=== PATIENT | female | born 1975 | race Caucasian/White ===

== ENCOUNTER 2023-06-25 06:44 | Inpatient (IN) | payer BC ==
[2023-06-25 07:17] LABS: #Monocytes 1.7 thou/uL (0.11-0.59); #Neutrophils 14.7 thou/uL (1.40-6.50); %Basophils 0.2 % (0.0-1.0); %Eosinophils 0.1 % (0.0-10.0); %Lymphocytes 16.5 % (21.0-51.0); %Monocytes 8.6 % (0.0-10.0); %Neutrophils 74.2 % (42.0-75.0); Hematocrit 44.5 % (36.0-47.0); Hemoglobin 16.2 g/dL (12.0-16.0); Mean Corpuscular HGB CONC 36.4 g/dL (32.0-36.0); Mean Corpuscular Hemoglobin 29.9 pg (27.0-31.0); Mean Corpuscular Volume 82.1 fl (78.0-98.0); Mean Platelet Volume 9.4 fL (7.4-10.4); Platelet Count 635 10x3/uL (130-400); RBC Distribution Width 13.1 % (11.5-14.5); Red Blood Cell (RBC) Count 5.42 mill/uL (4.20-5.40); White Blood Cell (WBC) Count 19.8 10x3/uL (4.8-10.8)
[2023-06-25 07:33] LABS: ALT (SGPT) 22 U/L (8-55); AST (SGOT) 25 U/L (5-34); Alkaline Phosphatase 95 U/L (40-110); Anion Gap 23 mmol/L (10-20); BUN (Urea Nitrogen) 11 mg/dL (7.0-18.7); Bilirubin, Total 1.6 mg/dL (0.2-1.2); Calc. Creatinine Clearance 0 mL/min (70-130); Calcium 10.2 mg/dL (7.8-10.44); Carbon Dioxide 18 mmol/L (22-29); Chloride 100 mmol/L (98-107); Estimated GFR 67; Globulin 3.9 g/dL (2.4-3.5); Glucose 161 mg/dL (70-105); Potassium 3.7 mmol/L (3.5-5.1); Protein, Total 8.9 g/dL (6.0-8.3); Sodium 137 mmol/L (136-145)
[2023-06-25] MEDS ORDERED: Ondansetron PF 4 MG/2 ML Vial ONE (07:37)
[2023-06-25 07:40] LABS: Critical Call Chem Troponin I NUR.LR15@0740; Troponin I 1.354 ng/mL (< 0.028)
[2023-06-25] MEDS ORDERED: Aspirin Chewable 81 MG TAB ONE (07:53)
[2023-06-25] MEDS ORDERED: Enoxaparin 80 MG (0.8 mL) SYRINGE ONE (08:56)
[2023-06-25 08:59] LABS: Influenza A by NAA Not Detected (NotDetected); Influenza B by NAA Not Detected (NotDetected); SARS-CoV-2 NAA Rapid Test Not Detected (NotDetected)
[2023-06-25 10:52] LABS: Critical Call Chem Troponin I NUR.JF4 @1052; Troponin I 1.219 ng/mL (< 0.028)
[2023-06-25] MEDS ORDERED: Nitroglycerin 0.4 MG TAB (25 Tab Bottle) SL PRN (11:32)
[2023-06-25] MEDS ORDERED: Acetaminophen 325 MG TAB PO PRN (11:32)
[2023-06-25] MEDS ORDERED: Acetaminophen 650 MG Suppository PR PRN (11:32)
[2023-06-25] MEDS ORDERED: Ondansetron PF 4 MG/2 ML Vial IVP PRN (11:32)
[2023-06-25] MEDS ORDERED: Ondansetron ODT 4 MG TAB PO PRN (11:32)
[2023-06-25] MEDS ORDERED: Pantoprazole 40 MG VIAL ONE (12:43)
[2023-06-25] MEDS ORDERED: Famotidine/PF 20 mg/2ml Vial ONE (12:44)
[2023-06-25] MEDS: Pantoprazole 40 MG VIAL IVP SCH (12:53)
[2023-06-25] MEDS: Sodium Chloride 0.9% 1,000 ML IV SCH (12:53)
[2023-06-25] MEDS: Famotidine 20 MG TAB PO SCH (12:53)
[2023-06-25 13:00] LABS: #Monocytes 1.2 thou/uL (0.11-0.59); #Neutrophils 11.7 thou/uL (1.40-6.50); %Basophils 0.2 % (0.0-1.0); %Eosinophils 0.1 % (0.0-10.0); %Lymphocytes 20.9 % (21.0-51.0); %Monocytes 7.3 % (0.0-10.0); %Neutrophils 71.2 % (42.0-75.0); Hematocrit 39.7 % (36.0-47.0); Hemoglobin 14.4 g/dL (12.0-16.0); Mean Corpuscular HGB CONC 36.3 g/dL (32.0-36.0); Mean Corpuscular Hemoglobin 30.2 pg (27.0-31.0); Mean Corpuscular Volume 83.2 fl (78.0-98.0); Mean Platelet Volume 9.5 fL (7.4-10.4); Platelet Count 501 10x3/uL (130-400); RBC Distribution Width 13.2 % (11.5-14.5); Red Blood Cell (RBC) Count 4.77 mill/uL (4.20-5.40); White Blood Cell (WBC) Count 16.4 10x3/uL (4.8-10.8)
[2023-06-25 13:39] LABS: Critical Call Chem Troponin I NUR.KR7 @1339; Troponin I 1.211 ng/mL (< 0.028)
[2023-06-25 20:33] VITALS: BMI 29.6
[2023-06-25] MEDS: Atorvastatin Calcium 40 MG TAB PO SCH (20:35)
[2023-06-25] MEDS: Metoprolol Tartrate 25 MG TAB PO SCH (20:35)
[2023-06-26 05:14] LABS: #Basophils 0.1 thou/uL (0.0-0.2); #Eosinphils 0.2 thou/uL (0.0-0.7); #Monocytes 1.1 thou/uL (0.11-0.59); #Neutrophils 7.2 thou/uL (1.40-6.50); %Basophils 0.4 % (0.0-1.0); %Eosinophils 1.2 % (0.0-10.0); %Lymphocytes 33.9 % (21.0-51.0); %Monocytes 8.7 % (0.0-10.0); %Neutrophils 55.5 % (42.0-75.0); Hematocrit 35.6 % (36.0-47.0); Hemoglobin 12.8 g/dL (12.0-16.0); Mean Corpuscular Hemoglobin 30.3 pg (27.0-31.0); Mean Corpuscular Volume 84.2 fl (78.0-98.0); Mean Platelet Volume 9.9 fL (7.4-10.4); Platelet Count 420 10x3/uL (130-400); RBC Distribution Width 13.2 % (11.5-14.5); Red Blood Cell (RBC) Count 4.23 mill/uL (4.20-5.40)
[2023-06-26 05:40] LABS: Anion Gap 13 mmol/L (10-20); BUN (Urea Nitrogen) 9 mg/dL (7.0-18.7); Calc. Creatinine Clearance 122 mL/min (70-130); Calcium 8.7 mg/dL (7.8-10.44); Carbon Dioxide 24 mmol/L (22-29); Cardiac Risk 6.3 (Less than 4.5); Chloride 104 mmol/L (98-107); Cholesterol 222 mg/dl (< 200 Desired); Estimated GFR 101; Glucose 90 mg/dL (70-105); HDL Cholesterol 35 mg/dL (>60 Neg Risk); LDL Cholesterol, Calculated 142 mg/dL; Potassium 3.2 mmol/L (3.5-5.1); Sodium 138 mmol/L (136-145); Triglycerides 225 mg/dL (Less than 150)
[2023-06-26] MEDS: Sodium Chloride 0.9% 1,000 ML IV SCH ×2 (05:56→09:30)
[2023-06-26] MEDS ORDERED: Communication Order-Pharmacy FS SCH (06:00)
[2023-06-26 06:01] LABS: Hemoglobin A1c 4.7 % (4.0-6.0)
[2023-06-26] MEDS ORDERED: Protamine Sulfate 50 MG/5 ML VIAL ONE (06:23)
[2023-06-26] MEDS ORDERED: Heparin 10,000 UNITS/ 10 ML VIAL ONE ×2 (06:23→07:43)
[2023-06-26] MEDS ORDERED: Nitroglycerin 50 MG/250 ML BOT 250 ML ONE (06:23)
[2023-06-26] MEDS ORDERED: Midazolam HCl 2 mg/2 ml Vial ONE (06:58)
[2023-06-26] MEDS ORDERED: fentaNYL 50 mcg/mL 1 mL Vial ONE ×2 (06:58→09:28)
[2023-06-26 07:50] LABS: Amphetamine Not Detected (NotDetected); Barbiturates Screen Not Detected (NotDetected); Benzodiazepine Screen Detected (NotDetected); Cocaine Metabolite Screen Not Detected (NotDetected); Methadone Not Detected (NotDetected); Methamphetamine Not Detected (NotDetected); Opiate Screen Not Detected (NotDetected); Oxycodone Screen Not Detected (NotDetected); Phencyclidine (PCP) Not Detected (NotDetected); THC/Cannabinoid Screen Detected (NotDetected); Tricyclic Screen Not Detected (NotDetected)
[2023-06-26] MEDS ORDERED: TICAGRELOR 90 MG TABLET ONE (07:51)
[2023-06-26] MEDS: Aspirin 81 mg Enteric Coated Tablet PO SCH (08:36)
[2023-06-26] MEDS: TICAGRELOR 90 MG TABLET PO SCH (09:40)
[2023-06-26] MEDS ORDERED: Ondansetron PF 4 MG/2 ML Vial IVP PRN (10:33)
[2023-06-26] MEDS ORDERED: Ondansetron PF 4 MG/2 ML Vial ONE (10:36)
[2023-06-26] MEDS ORDERED: Pantoprazole 40 MG VIAL IVP SCH (10:45)
[2023-06-26] MEDS: Mag-Al 1200 mg/1200 mg/30 ML UDCUP PO SCH (10:57)
[2023-06-26] MEDS ORDERED: Promethazine HCl 25 MG/ML VIAL ONE (11:06)
[2023-06-26] MEDS ORDERED: Labetalol HCl 100 MG/20 ML VIAL SLOW IVP PRN (13:44)
[2023-06-26] MEDS ORDERED: Scopolamine 1 mg/72 hour Patch ONE (14:05)
[2023-06-26] MEDS ORDERED: Metoclopramide HCl 10 MG (2 mL) VIAL ONE (14:06)
[2023-06-26] MEDS ORDERED: Labetalol HCl 100 MG/20 ML VIAL ONE (14:08)
[2023-06-26] MEDS: Scopolamine 1 mg/72 hour Patch TD SCH (14:18)
[2023-06-26] MEDS: Metoclopramide HCl 10 MG (2 mL) VIAL IVP SCH ×2 (14:20→16:42)
[2023-06-26] MEDS ORDERED: hydrALAZINE 20 MG/ML VIAL ONE (14:57)
[2023-06-26] MEDS ORDERED: Electrolyte Replacement Protocol 1 EACH FS SCH (16:00)
[2023-06-26] MEDS: Potassium Chloride 20 MEQ in Premix 1 BAG IVPB SCH (16:42)
[2023-06-26] MEDS: hydrALAZINE 20 MG/ML VIAL SLOW IVP SCH (17:02)
[2023-06-26] MEDS: Lorazepam 2 MG/ML VIAL SLOW IVP SCH (17:43)
[2023-06-26] MEDS: Pantoprazole 40 MG VIAL IVP SCH (21:19)
[2023-06-26] MEDS: fentaNYL 50 mcg/mL 1 mL Vial SLOW IVP PRN (21:20)
[2023-06-26] MEDS ORDERED: Lorazepam 2 MG/ML VIAL SLOW IVP PRN (23:00)
[2023-06-27] MEDS: Lorazepam 2 MG/ML VIAL SLOW IVP PRN (08:31)
[2023-06-27] MEDS ORDERED: Non-Formulary Item 1 EACH (Esomeprazole Magnesium [Nexium] 40 MG Cap) PO SCH (09:00)
[2023-06-27 10:45] LABS: #Monocytes 1.2 thou/uL (0.11-0.59); #Neutrophils 9.3 thou/uL (1.40-6.50); %Basophils 0.2 % (0.0-1.0); %Eosinophils 0.3 % (0.0-10.0); %Lymphocytes 20.2 % (21.0-51.0); %Monocytes 8.8 % (0.0-10.0); Hematocrit 30.4 % (36.0-47.0); Hemoglobin 11.2 g/dL (12.0-16.0); Mean Corpuscular HGB CONC 36.8 g/dL (32.0-36.0); Mean Corpuscular Hemoglobin 30.9 pg (27.0-31.0); Mean Platelet Volume 9.9 fL (7.4-10.4); Platelet Count 390 10x3/uL (130-400); RBC Distribution Width 13.2 % (11.5-14.5); Red Blood Cell (RBC) Count 3.62 mill/uL (4.20-5.40); White Blood Cell (WBC) Count 13.2 10x3/uL (4.8-10.8)
[2023-06-27 11:06] LABS: Phosphorus 2.3 mg/dL (2.3-4.7)
[2023-06-27 11:10] LABS: ALT (SGPT) 18 U/L (8-55); AST (SGOT) 21 U/L (5-34); Albumin 3.8 g/dL (3.5-5.0); Alkaline Phosphatase 65 U/L (40-110); Anion Gap 13 mmol/L (10-20); BUN (Urea Nitrogen) 7 mg/dL (7.0-18.7); Bilirubin, Total 1.9 mg/dL (0.2-1.2); Calc. Creatinine Clearance 116 mL/min (70-130); Calcium 8.6 mg/dL (7.8-10.44); Carbon Dioxide 21 mmol/L (22-29); Chloride 102 mmol/L (98-107); Estimated GFR 91; Globulin 2.7 g/dL (2.4-3.5); Glucose 114 mg/dL (70-105); Magnesium 1.8 mg/dL (1.6-2.6); Potassium 2.8 mmol/L (3.5-5.1); Protein, Total 6.5 g/dL (6.0-8.3); Sodium 133 mmol/L (136-145)
[2023-06-27] MEDS: Potassium Chloride 20 MEQ TAB PO SCH (12:30)
[2023-06-27] MEDS: Magnesium 2 GM/50 ML(in water) 2 GM in Premix 1 BAG IVPB SCH (12:30)
[2023-06-27] MEDS: Potassium Chloride 20 MEQ in Premix 1 BAG IVPB SCH (14:42)
[2023-06-27 15:32] LABS: Potassium 3.1 mmol/L (3.5-5.1)
[2023-06-27 16:29] VITALS: BP 106/52; TEMP 96.8
[2023-06-29] MEDS ORDERED: Transdermal Patch Removal TOP SCH (14:00)
== END 2023-06-27 19:10 | disposition home or self-care (01) | DRG 322 ==
LOC: ERS 06:44 → ERHOLD 08:29 → 2NO 19:23
PROVIDERS: ADMIT Internal Medicine; ATTEND Family Medicine
PROC: 027135Z Dilation of Coronary Artery, Two Arteries with Two Drug-eluting Intraluminal Devices, Percutaneous Approach (ICD-10-PCS; principal; 2023-06-26)
PROC: 4A023N7 Measurement of Cardiac Sampling and Pressure, Left Heart, Percutaneous Approach (ICD-10-PCS; 2023-06-26)
PROC: B2111ZZ Fluoroscopy of Multiple Coronary Arteries using Low Osmolar Contrast (ICD-10-PCS; 2023-06-26)
PROC: B2151ZZ Fluoroscopy of Left Heart using Low Osmolar Contrast (ICD-10-PCS; 2023-06-26)
DX: I21.4 Non-ST elevation (NSTEMI) myocardial infarction (principal); F41.9 Anxiety disorder, unspecified; E78.5 Hyperlipidemia, unspecified; E66.9 Obesity, unspecified; E87.6 Hypokalemia; E86.0 Dehydration; K21.9 Gastro-esophageal reflux disease without esophagitis; Z90.49 Acquired absence of other specified parts of digestive tract; Z98.890 Other specified postprocedural states; Z68.30 Body mass index [BMI] 30.0-30.9, adult; Z79.899 Other long term (current) drug therapy
CPT/HCPCS: 36415; 71045; 80048; 80053; 80061; 80306; 83036; 83690; 83735; 84100; 84484; 85025; 85347; 92928; 92929; 93005; 93010; 93306; 93458; 93798; 96361; 96372; 96374; 99152; 99153; C1725; C1769; C1874; C1876; C1887; C9113; C9600; C9601; J0360; J1644; J1650; J2060; J2250; J2405; J2550; J2720; J2765; J3010; J3475; J3480; J7050; S0028

== ENCOUNTER 2023-09-02 16:19 | Emergency (ER) | payer BC | END 2023-09-02 18:36 | disposition left against medical advice (07) | LOC: ERS 16:19 | DX: Z53.21 Procedure and treatment not carried out due to patient leaving prior to being seen by health care provider (principal) | CPT/HCPCS: 71046; 93005 ==

== ENCOUNTER 2024-03-15 09:08 | Emergency (ER) | payer BC ==
[2024-03-15] MEDS ORDERED: Droperidol 5 MG/2 ML VIAL ONE (09:50)
[2024-03-15 09:54] LABS: #Basophils 0.03 10x3/uL (0.0-0.2); %Basophils 0.2 % (0.0-1.0); %Eosinophils 0.7 % (0.0-10.0); %Lymphocytes 13.4 % (21.0-51.0); %Monocytes 5.9 % (0.0-10.0); %Neutrophils 79.5 % (42.0-75.0); Hematocrit 37.2 % (36.0-47.0); Hemoglobin 13.3 g/dL (12.0-16.0); Mean Corpuscular HGB CONC 35.8 g/dL (32.0-36.0); Mean Corpuscular Hemoglobin 28.3 pg (27.0-31.0); Mean Corpuscular Volume 79.1 fL (78.0-98.0); Mean Platelet Volume 9.8 fL (7.4-10.4); Platelet Count 511 10x3/uL (130-400); RBC Distribution Width 14.4 % (11.5-14.5)
[2024-03-15 10:20] LABS: Troponin I Less than 0.010 ng/mL (< 0.028)
[2024-03-15 10:30] LABS: ALT (SGPT) 24 U/L (8-55); AST (SGOT) 31 U/L (5-34); Albumin 4.8 g/dL (3.5-5.0); Alkaline Phosphatase 80 U/L (40-110); Anion Gap 18 mmol/L (10-20); BUN (Urea Nitrogen) 6 mg/dL (7.0-18.7); Bilirubin, Total 1.1 mg/dL (0.2-1.2); Calc. Creatinine Clearance 0 mL/min (70-130); Calcium 9.6 mg/dL (7.8-10.44); Carbon Dioxide 20 mmol/L (22-29); Chloride 100 mmol/L (98-107); Estimated GFR 83; Globulin 3.2 g/dL (2.4-3.5); Glucose 140 mg/dL (70-105); Lipase 26 U/L (8-78); Potassium 3.3 mmol/L (3.5-5.1); Sodium 135 mmol/L (136-145)
[2024-03-15] MEDS ORDERED: Potassium Chloride 20 MEQ TAB ONE (11:25)
== END 2024-03-15 13:08 | disposition home or self-care (01) ==
LOC: ERS 09:08
DX: R11.2 Nausea with vomiting, unspecified (principal); I10 Essential (primary) hypertension; E11.9 Type 2 diabetes mellitus without complications; F41.9 Anxiety disorder, unspecified
CPT/HCPCS: 71045; 80053; 83690; 83735; 84484; 85025; 93005; 94760; 96374; J1790